=== PATIENT | male | born 1945 | race Caucasian/White ===

== ENCOUNTER 2016-12-10 10:47 | Emergency (ER) | payer OTHER ==
[2016-12-10 10:53] VITALS: TEMP 98.3; BMI 26.6
[2016-12-10 12:15] LABS: URINE APPEARANCE CLEAR; URINE BILIRUBIN NEGATIVE (NEGATIVE); URINE BLOOD NEGATIVE (NEGATIVE); URINE COLOR YELLOW; URINE GLUCOSE (UA) NEGATIVE (NEGATIVE); URINE KETONE NEGATIVE (NEGATIVE); URINE LEUK ESTERASE NEGATIVE (NEGATIVE); URINE NITRITE NEGATIVE (NEGATIVE); URINE PROTEIN NEGATIVE (NEGATIVE); URINE UROBILINOGEN NEGATIVE mg/dL (0.2-1.0)
--- NOTE | 2016-12-10 13:20 | PDOC ---
History of Present Illness - General Chief Complaint: Pain Stated Complaint: TESTICULAR PAIN Time Seen by Provider: 12/10/16 10:56 History Source: Patient Exam Limitations: No Limitations - History of Present Illness Travel History: No Initial Comments: 12/10/16 13:15 71-year-old male presents to the ED with worsening left testicular pain for the past few months. Patient states initially started as mild intermittent soreness now with constant severity radiating to his right scrotal region. Patient denies dysuria, hematuria, fever, chills skin discoloration, recent injury, or history of hydrocele/hernia. Patient was given a prescription for an ultrasound by his PCP Dr. Ramírez Choi but instead came to the ER for further evaluation. Patient has no other complaints at this time. Timing/Duration: reports: getting worse Quality: reports: moderate Abdominal Pain Onset Location: reports: other (left scrotum) Aggravating Factors: improves with: Movement Alleviating Factors: improves with: Rest Past History - Travel Traveled outside of the country in the last 30 days: No - Past Medical History Allergies/Adverse Reactions: Allergies Allergy/AdvReac Type Severity Reaction Status Date / Time No Known Drug Allergies Allergy Verified 12/10/16 10:52 Home Medications: Ambulatory Orders Lisinopril [Prinivil] 2.5 mg PO DAILY #60 tablet 07/12/13 Diltiazem HCl [Diltiazem 24Hr ER] 240 mg PO DAILY 08/01/13 Warfarin Na [Coumadin -] 2 mg PO DAILY 09/26/15 Anemia: No Asthma: No Cancer: No Cardiac Disorders: Yes (A.FIB) CVA: No COPD: No CHF: No Dementia: No Diabetes: No GI Disorders: No Disorders: No HTN: Yes Hypercholesterolemia: No Liver Disease: No Seizures: No Thyroid Disease: No - Surgical History Abdominal Surgery: No Appendectomy: No Cardiac Surgery: No Cholecystectomy: No Lung Surgery: No Neurologic Surgery: No Orthopedic Surgery: Yes (SHOULDER RIGHT FOR A TEAR) - Psycho/Social/Smoking Cessation Hx Anxiety: No Suicidal Ideation: No Smoking Status: No Smoking History: Never smoked Have you smoked in the past 12 months: No Number of Cigarettes Smoked Daily: 0 Information on smoking cessation initiated: No Hx Alcohol Use: No Drug/Substance Use Hx: No Substance Use Type: None Hx Substance Use Treatment: No Patient Lives Alone: No Lives with/in: spouse/SO Review of Systems - Review of Systems Able to Perform ROS?: Yes Constitutional: No: Symptoms Reported HEENTM: No: Symptoms Reported Respiratory: No: Symptoms reported Cardiac (ROS): No: Symptoms Reported ABD/GI: No: Symptoms Reported : Yes: Testicular Swelling, Testicular Pain. No: Burning, Dysuria, Discharge , Frequency, Flank Pain, Hematuria Musculoskeletal: No: Symptoms Reported Integumentary: No: Symptoms Reported Neurological: No: Symptoms reported Endocrine: No: Symptoms Reported Hematologic/Lymphatic: No: Symptoms Reported *Physical Exam - Vital Signs Last Vital Signs Temp Pulse Resp BP Pulse Ox 98.3 F 87 18 131/74 98 12/10/16 10:51 12/10/16 10:51 12/10/16 10:51 12/10/16 10:51 12/10/16 10:51 - Physical Exam General Appearance: Yes: Nourished, Appropriately Dressed. No: Apparent Distress HEENT: negative: Pale Conjunctivae Neck: positive: Supple Respiratory/Chest: positive: Lungs Clear, Normal Breath Sounds. negative: Respiratory Distress, Accessory Muscle Use Cardiovascular: positive: Regular Rhythm, Regular Rate. negative: Murmur Gastrointestinal/Abdominal: positive: Soft. negative: Tenderness Male Genitalia: positive: testicular tenderness, testicular mass, other (noted 4 x 2 cm tubular fluid-fluid mass proximal of left testicle. normal cremasteric reflex). negative: epididymus tender, inguinal hernia Lymphatic: negative: Adenopathy Musculoskeletal: negative: CVA Tenderness Extremity: positive: Normal Capillary Refill. negative: Pedal Edema Integumentary: positive: Normal Color, Warm, Moist. negative: Erythema, Swelling, Ecchymosis Neurologic: positive: Motor Strength 5/5 (ambulatory) ED Treatment Course - ADDITIONAL ORDERS Additional order review: Laboratory Results 12/10/16 12:05 Urine Color Yellow Urine Appearance Clear Urine pH 5.0 Urine Protein Negative Urine Glucose (UA) Negative Urine Ketones Negative Urine Blood Negative Urine Nitrite Negative Urine Bilirubin Negative Urine Urobilinogen Negative Ur Leukocyte Esterase Negative - RADIOLOGY Radiology Studies Ordered: Category Date Time Status SCROTUM AND CONTENTS US [US] Stat Ultrasound 12/10/16 11:42 Ordered Medical Decision Making - Medical Decision Making 12/10/16 13:20 Patient with continual and worsening left testicular pain. Patient states seen by his PCP yesterday who referred him to get an testicle ultrasound. Patient states secondary to pain, he decided come to the ER. Patient had no other complaints on exam. Patient with likely hydrocele versus hernia. Patient ordered for scrotal and contacts ultrasound along with a urinalysis and urine culture. 12/10/16 15:09 Laboratory Tests 12/10/16 12:05 Urine Glucose (UA) Negative Urine Ketones Negative Urine Nitrite Negative Ur Leukocyte Esterase Negative Both testicles appear unremarkable without evidence of epididymorchitis or torsion. Small bilateral varicocele . Small right and small to moderate size left hydrocele patient will be discharged home to follow-up with urology. *DC/Admit/Observation/Transfer Diagnosis at time of Disposition: Hydrocele in adult - Discharge Dispostion Disposition: HOME Condition at time of disposition: Good - Referrals Referrals: Kevin Choi MD [Primary Care Provider] - Estuardo Figueroa MD [Staff Physician] - - Patient Instructions Printed Discharge Instructions: DI for Hydrocele-Adult Additional Instructions: Please elevate scrotum and take Tylenol for discomfort. Please also follow up with referred urologist.
[2016-12-10 15:31] VITALS: BP 132/68; PULSE 81
== END 2016-12-10 15:31 | disposition home or self-care (01) ==
LOC: JER 10:47
DX: N43.3 Hydrocele, unspecified (principal); I48.91 Unspecified atrial fibrillation; I10 Essential (primary) hypertension
CPT/HCPCS: 76870-TC; 81003; 87086; 99282-25

== ENCOUNTER 2018-09-02 15:37 | Emergency (ER) | payer OTHER ==
[2018-09-02 15:48] VITALS: BP 119/95; PULSE 93; TEMP 98.1; BMI 30.5
--- NOTE | 2018-09-02 15:48 | PDOC ---
Rapid Medical Evaluation Time Seen by Provider: 09/02/18 15:45 Medical Evaluation: Allergies Allergy/AdvReac Type Severity Reaction Status Date / Time No Known Drug Allergies Allergy Verified 12/10/16 10:52 09/02/18 15:45 I have performed a brief in-person evaluation of this patient. The patient presents with a chief complaint of: LLQ pain radiating to groin x 5 days, no dysuria or hematuria, hx afib on coumadin. PCP Kevin Choi. denies hx of abdominal sx Pertinent physical exam findings: well appearing, mild tenderness to LLQ I have ordered the following: urine, labs, ct The patient will proceed to the ED for further evaluation.
[2018-09-02] MEDS ORDERED: ACETAMINOPHEN 1000 MG/100 ML VIAL (NON FORMULARY) IVPB ONE (17:13)
[2018-09-02] MEDS ORDERED: SODIUM CHLORIDE 0.9% 500 ML INFUS.BAG IV ONE (17:13)
[2018-09-02 17:40] LABS: BASO % 0.5 % (0-2.0); EOS % 2.4 % (0-4.5); HEMATOCRIT 42.8 % (35.4-49); HEMOGLOBIN 14.4 GM/dL (11.7-16.9); LYMPH % 36.2 % (8-40); MCH 32.8 pg (25.7-33.7); MCHC 33.6 g/dl (32.0-35.9); MEAN CELL VOLUME 97.6 fl (80-96); MEAN PLT VOLUME 8.3 fl (7.5-11.1); MONO % 6.5 % (3.8-10.2); NEUT % 54.4 % (42.8-82.8); PLATELET COUNT 215 K/MM3 (134-434); RBC 4.38 M/mm3 (4.00-5.60); RDW 13.5 % (11.9-15.9); WHITE BLOOD COUNT 8.1 K/mm3 (4.0-10.0)
[2018-09-02 17:48] LABS: INR 2.84 (0.83-1.09); PROTHROMBIN TIME (PATIENT) 33.9 SEC (9.7-13.0)
--- NOTE | 2018-09-02 17:48 | PDOC ---
Documentation entered by Vivi Rockwell SCRIBE, acting as scribe for Maryanne Callejas MD. Maryanne Callejas MD: This documentation has been prepared by the siennaibe, Vivi Rockwell SCRIBE, under my direction and personally reviewed by me in its entirety. I confirm that the documentation accurately reflects all work, treatment, procedures, and medical decision making performed by me. History of Present Illness - General Chief Complaint: Pain Stated Complaint: TESTICULAR PAIN Time Seen by Provider: 09/02/18 15:45 History Source: Patient Exam Limitations: No Limitations - History of Present Illness Initial Comments: 09/02/18 17:26 The patient is a year old male with a significant past medical history of afib ( on coumadin), kidney stones and hypertension who presents to the emergency department with left sided abdominal pain for 4 days. The patient states that his abdominal pain is pressure like and worsened with eating. He reports some associated left groin pain without testicular swelling as well as urinary frequency; no hematuria, dysuria or urgency.. The patient reports that he has experienced a similar episode in the past by which he was noted to have kidney stones and also with hydrocele by ultrasound. The patient denies any nausea, vomiting, diarrhea, constipation, bloody stools, chest pain, shortness of breath. No Headache, dizziness, back pain, or recent travel. no suspicious food intake. He denies any history of smoking, drugs or alcohol. PSH: arthroscopies; no abdominal surgeries Meds as documented in EMR No tobacco or ETOH or drug use. PCP: Dr. Choi 09/02/18 17:44 Past History - Past Medical History Allergies/Adverse Reactions: Allergies Allergy/AdvReac Type Severity Reaction Status Date / Time No Known Drug Allergies Allergy Verified 09/02/18 15:48 Home Medications: Ambulatory Orders Lisinopril [Prinivil] 2.5 mg PO DAILY #60 tablet 07/12/13 Diltiazem HCl [Diltiazem 24Hr ER] 240 mg PO DAILY 08/01/13 Warfarin Na [Coumadin -] 2 mg PO DAILY 09/26/15 Anemia: No Asthma: No Cancer: No Cardiac Disorders: Yes (A.FIB) CVA: No COPD: No CHF: No Dementia: No Diabetes: No GI Disorders: No Disorders: No HTN: Yes Hypercholesterolemia: No Liver Disease: No Seizures: No Thyroid Disease: No - Surgical History Abdominal Surgery: No Appendectomy: No Cardiac Surgery: No Cholecystectomy: No Lung Surgery: No Neurologic Surgery: No Orthopedic Surgery: Yes (SHOULDER RIGHT FOR A TEAR) - Suicide/Smoking/Psychosocial Hx Smoking Status: No Smoking History: Never smoked Have you smoked in the past 12 months: No Number of Cigarettes Smoked Daily: 0 Information on smoking cessation initiated: No Hx Alcohol Use: No Drug/Substance Use Hx: No Substance Use Type: None Hx Substance Use Treatment: No Review of Systems - Review of Systems Able to Perform ROS?: Yes Comments:: 09/02/18 17:27 Constitutional: no fevers or chills. HEENT: no headache or dizziness. No congestion. No visual/hearing disturbances. CVS: no cp or syncope. Resp: no sob. No cough. Gastrointestinal: (+)left sided abdominal pain. no nausea or vomiting. no diarrhea or constipation. no bloody stools Genitourinary: (+)groin pain, urinary frequency. no hematuria. no dysuria. MUSCULOSKELETAL: No joint pain and swelling. No neck or back pain. SKIN: no redness or skin changes, no discharge, no rash. No wounds. Hematologic: no easy bruising/bleeding. NEUROLOGIC: No headache, dizziness, LOC or altered mental status. No weakness, numbness or tingling. Psych: no anxiety or depression Allergic/Immunologic: no allergies All other systems reviewed and negative, or as documented in HPI. 09/02/18 17:46 *Physical Exam - Vital Signs Last Vital Signs Temp Pulse Resp BP Pulse Ox 98.1 F 93 H 18 119/95 98 09/02/18 15:46 09/02/18 15:46 09/02/18 15:46 09/02/18 15:46 09/02/18 15:46 - Physical Exam Comments: 09/02/18 17:33 Physical exam: General: Well appearing, awake and alert, NAD. HEENT: NCAT, PERRL, EOMI, clear conjunctiva, anicteric, moist mucus membranes, clear oropharynx, no oral lesions.. Neck: neck supple, FROM Resp: CTAB, normal and even respirations, no respiratory distress CVS: irregularly irregular, no murmurs, 2+ peripheral pulses throughout, no peripheral edema Abdomen: (+)LLQ AND LUQ tenderness. soft, ND, no peritoneal signs. no CVAT. Male : normal external genitalia, no lesions, normal testicular lie, no scrotal or testicular edema or tenderness. Back: nontender, normal inspection and ROM MSK: no edema, DEE x4, ROM intact. No clubbing or cyanosis. normal bulk and tone. Neuro: alert, no focal neuro deficits. Skin: warm and well perfused, cap refill <2 sec, normal color 09/02/18 17:46 09/02/18 19:00 ED Treatment Course - LABORATORY CBC & Chemistry Diagram: 09/02/18 17:17 09/02/18 17:17 - ADDITIONAL ORDERS Additional order review: 09/02/18 17:17 RBC 4.38 MCV 97.6 H MCHC 33.6 RDW 13.5 MPV 8.3 Neutrophils % 54.4 Lymphocytes % 36.2 Monocytes % 6.5 Eosinophils % 2.4 Basophils % 0.5 - RADIOLOGY Radiology Studies Ordered: Category Date Time Status ABDOMEN & PELVIS CT WITH CONTR [CT] Stat CT Scan 09/02/18 16:49 Ordered Medical Decision Making - Medical Decision Making 09/02/18 17:47 See HPI for details. Prior notes reviewed, including admissions, discharges and consultations. Vital signs reviewed, wnl. DDx abdominal pain: Renal colic, biliary colic, metabolic/electrolyte derangements. GERD, PUD, esophageal spasm, pancreatitis, hepatitis, constipation , colitis, gastroenteritis, cholecystitis, UTI, pyelonephritis, ileus, SBO, medication side effect, hernia, appendicitis, diverticulitis, mesenteric ischemia. msk strain, mesenteric adenitis, psoas abscess. laboratory results and imaging reviewed, basic labs and lytes wnl, notable for normal LFTs. coags therapeutic for his Afib. UA_neg for infection ED course - CT a/p to eval for diverticular disease vs abdominal pathology vs ureteral stone. neg for acute abdominal pathology - given tylenol for analgesia, IVF - well appearing, nontoxic. no testicular tenderness or abnormalities noted Pt to be discharged in stable condition. Patient and family made aware of impression and plan, return precautions discussed (including but not limited to worsening pain or symptoms), fevers, or signs of infection, chest pain, respiratory distress, inability to tolerate oral intake, dehydration, syncope, or neurologic changes). Follow up with PMD as recommended, follow up information provided, take medications as instructed for duration of time. continue with supportive care, avoid triggers and precipitants. All questions answered to patient's satisfaction and expressed understanding and comfort with this. Patient does not suffer from an acute life-threatening medical condition at this time and is safe for outpatient follow-up. 09/02/18 18:57 09/02/18 19:00 09/03/18 09:16 *DC/Admit/Observation/Transfer Diagnosis at time of Disposition: Abdominal pain - Discharge Dispostion Disposition: HOME Condition at time of disposition: Improved Decision to Admit order: No - Referrals Referrals: Kevin Choi MD [Primary Care Provider] - - Patient Instructions Printed Discharge Instructions: DI for Abdominal Pain-Adult Additional Instructions: 1) Please follow-up with your primary care doctor in the next 1-2 days. Please call tomorrow for for any urgent issues. 2) You were given a copy of the tests performed today. Please bring the results with you and review them with your primary care doctor. Your laboratory / imaging results were normal, Evaluated for your abdominal pain, your CT scan was within normal limits and no acute pathology was noted. 3) If you have any worsening of symptoms or any other concerns please return to the ED immediately. Return if worsening symptoms including fevers, headache, vomiting, visual or hearing disturbances, abdominal pain, chest pain, shortness of breath, syncope, dehydration, inability to take things by mouth/vomiting, altered mental status, or worsening concerning symptoms. 4) Please continue taking your home medications as directed. Stay well hydrated and rest adequately. Make an appointment. If you cannot follow-up with your primary care doctor please return to the ED if worsening symptoms as above. - Post Discharge Activity
[2018-09-02 18:01] LABS: ALBUMIN 3.9 g/dl (3.4-5.0); BILIRUBIN,TOTAL 0.7 mg/dL (0.2-1); CALCIUM 8.6 mg/dL (8.5-10.1); CREATININE 0.9 mg/dL (0.55-1.3); POTASSIUM 4.2 mmol/L (3.5-5.1); TOT PROT 7.5 g/dl (6.4-8.2)
[2018-09-02] MEDS ORDERED: ACETAMINOPHEN INJECTION 100 ML IVPB ONE (18:13)
[2018-09-02 21:10] LABS: PH,URINE 5.5 (5.0-8.0); URINE APPEARANCE CLEAR; URINE BILIRUBIN NEGATIVE (NEGATIVE); URINE COLOR YELLOW; URINE GLUCOSE (UA) NEGATIVE (NEGATIVE); URINE KETONE NEGATIVE (NEGATIVE); URINE LEUK ESTERASE NEGATIVE (NEGATIVE); URINE NITRITE NEGATIVE (NEGATIVE); URINE PROTEIN NEGATIVE (NEGATIVE); URINE UROBILINOGEN 0.2 mg/dL (0.2-1.0)
--- NOTE | 2018-09-02 21:14 | PDOC ---
*Physical Exam - Vital Signs Last Vital Signs Temp Pulse Resp BP Pulse Ox 98.1 F 93 H 18 119/95 98 09/02/18 15:46 09/02/18 15:46 09/02/18 15:46 09/02/18 15:46 09/02/18 15:46 ED Treatment Course - LABORATORY CBC & Chemistry Diagram: 09/02/18 17:17 09/02/18 17:17 - ADDITIONAL ORDERS Additional order review: Laboratory Results 09/02/18 09/02/18 09/02/18 19:19 17:17 17:17 PT with INR 33.90 H INR 2.84 H Sodium 139 Potassium 4.2 Chloride 107 Carbon Dioxide 25 Anion Gap 7 L BUN 12 Creatinine 0.9 Est GFR (CKD-EPI)AfAm 98.55 Est GFR (CKD-EPI)NonAf 85.03 Random Glucose 84 Calcium 8.6 Total Bilirubin 0.7 AST 21 ALT 22 Alkaline Phosphatase 81 Total Protein 7.5 Albumin 3.9 Urine Color Yellow Urine Appearance Clear Urine pH 5.5 Ur Specific [place] 1.038 H Urine Protein Negative Urine Glucose (UA) Negative Urine Ketones Negative Urine Blood Negative Urine Nitrite Negative Urine Bilirubin Negative Urine Urobilinogen 0.2 Ur Leukocyte Esterase Negative 09/02/18 17:17 RBC 4.38 MCV 97.6 H MCHC 33.6 RDW 13.5 MPV 8.3 Neutrophils % 54.4 Lymphocytes % 36.2 Monocytes % 6.5 Eosinophils % 2.4 Basophils % 0.5 - Medications Given in the ED: ED Medications Discontinued Medications Generic Name Dose Route Start Last Admin Trade Name Freq PRN Reason Stop Dose Admin Acetaminophen 1,000 mg 09/02/18 17:13 09/02/18 18:26 Ofirmev Injection - IVPB 09/02/18 17:14 1,000 mg ONCE ONE Administration Sodium Chloride 1,000 ml 09/02/18 17:13 09/02/18 18:26 Normal Saline - IV 09/02/18 17:14 1,000 ml ONCE ONE Administration Medical Decision Making - Medical Decision Making 09/03/18 02:32 Pt picked up on signout. He is awaiting UA. UA normal; exam normal; CT scan normal. Pt stable for d/c home with his family. *DC/Admit/Observation/Transfer Diagnosis at time of Disposition: Abdominal pain - Discharge Dispostion Disposition: HOME Condition at time of disposition: Improved Decision to Admit order: No - Referrals Referrals: Kevin Choi MD [Primary Care Provider] - - Patient Instructions Printed Discharge Instructions: DI for Abdominal Pain-Adult Additional Instructions: 1) Please follow-up with your primary care doctor in the next 1-2 days. Please call tomorrow for for any urgent issues. 2) You were given a copy of the tests performed today. Please bring the results with you and review them with your primary care doctor. Your laboratory / imaging results were normal, Evaluated for your abdominal pain, your CT scan was within normal limits and no acute pathology was noted. 3) If you have any worsening of symptoms or any other concerns please return to the ED immediately. Return if worsening symptoms including fevers, headache, vomiting, visual or hearing disturbances, abdominal pain, chest pain, shortness of breath, syncope, dehydration, inability to take things by mouth/vomiting, altered mental status, or worsening concerning symptoms. 4) Please continue taking your home medications as directed. Stay well hydrated and rest adequately. Make an appointment. If you cannot follow-up with your primary care doctor please return to the ED if worsening symptoms as above. - Post Discharge Activity
== END 2018-09-02 22:02 | disposition home or self-care (01) ==
LOC: JER 15:37
PROC: 3E033NZ Introduction of Analgesics, Hypnotics, Sedatives into Peripheral Vein, Percutaneous Approach (ICD-10-PCS; principal; 2018-09-02)
DX: R10.32 Left lower quadrant pain (principal); I10 Essential (primary) hypertension; Z87.442 Personal history of urinary calculi; I48.91 Unspecified atrial fibrillation; Z79.01 Long term (current) use of anticoagulants
CPT/HCPCS: 36415; 74177-TC; 80053; 81003; 85025; 85610; 87086; 99281-25; J0131

== ENCOUNTER 2021-06-16 17:55 | Observation (INO) | payer OTHER ==
[2021-06-16 21:03] LABS: BASO % 0.6 % (0-2.0); EOS % 0.3 % (0-4.5); HEMATOCRIT 45.1 % (35.4-49); LYMPH % 19.5 % (8-40); MCHC 33.2 g/dl (32.0-35.9); MEAN CELL VOLUME 96.5 fl (80-96); MONO % 6.8 % (3.8-10.2); NEUT % 72.8 % (42.8-82.8); PLATELET COUNT 237 10^3/uL (134-434); RBC 4.67 M/mm3 (4.00-5.60); RDW 13.8 % (11.9-15.9); WHITE BLOOD COUNT 10.9 K/mm3 (4.0-10.0)
[2021-06-16 21:27] LABS: ALBUMIN 3.8 g/dl (3.4-5.0); BLOOD UREA NITROGEN 19.1 mg/dL (7-18); CALCIUM 9.5 mg/dL (8.5-10.1)
[2021-06-16 21:31] LABS: INR 2.91 (0.83-1.09); PROTHROMBIN TIME (PATIENT) 33.8 SEC (9.7-13.0)
[2021-06-16 21:32] LABS: BILIRUBIN,TOTAL 1.5 mg/dL (0.2-1); TOT PROT 7.1 g/dl (6.4-8.2)
[2021-06-16 21:35] LABS: N-TERMINAL BNP 940.3 pg/ml (5-125)
[2021-06-16] MEDS ORDERED: ACETAMINOPHEN 325 MG TABLET (FP) PO ONE (22:25)
[2021-06-16] MEDS ORDERED: ACETAMINOPHEN 325 MG TABLET (FP) ONE (22:27)
[2021-06-17 08:15] LABS: BASO % 0.6 % (0-2.0); EOS % 1.4 % (0-4.5); HEMOGLOBIN 14.4 GM/dL (11.7-16.9); MCH 32.3 pg (25.7-33.7); MCHC 33.4 g/dl (32.0-35.9); MEAN CELL VOLUME 96.6 fl (80-96); MEAN PLT VOLUME 8.8 fl (7.5-11.1); MONO % 7.8 % (3.8-10.2); NEUT % 59.2 % (42.8-82.8); PLATELET COUNT 193 10^3/uL (134-434); RBC 4.45 M/mm3 (4.00-5.60); RDW 13.3 % (11.9-15.9); WHITE BLOOD COUNT 6.7 K/mm3 (4.0-10.0)
[2021-06-17 08:48] LABS: BLOOD UREA NITROGEN 15.8 mg/dL (7-18)
[2021-06-17 08:50] LABS: CALCIUM 9.3 mg/dL (8.5-10.1)
[2021-06-17 08:54] LABS: CREATININE 0.8 mg/dL (0.55-1.3)
[2021-06-17] MEDS ORDERED: LISINOPRIL 5 MG TABLET ONE (09:40)
[2021-06-17] MEDS ORDERED: LISINOPRIL 5 MG TABLET PO SCH (10:00)
[2021-06-17] MEDS ORDERED: hydrALAZINE HCL 20 MG/ML VIAL IVPUSH ONE (12:01)
[2021-06-17] MEDS ORDERED: hydrALAZINE HCL 20 MG/ML VIAL ONE (12:19)
[2021-06-17 13:57] VITALS: BMI 31.4
[2021-06-17] MEDS: WARFARIN NA 3 MG TABLET PO SCH (17:25)
[2021-06-17] MEDS: ATORVASTATIN CA 10 MG TABLET (FP) PO SCH (21:14)
[2021-06-18 07:40] LABS: INR 2.54 (0.83-1.09); PROTHROMBIN TIME (PATIENT) 29.5 SEC (9.7-13.0)
[2021-06-18] MEDS: LISINOPRIL 5 MG TABLET PO SCH (08:59)
[2021-06-18] MEDS ORDERED: REGADENOSON 0.4 MG/5 ML PRE-FILLED SYRINGE IVPUSH ONE ×2 (09:22→10:15)
[2021-06-18] MEDS: WARFARIN NA 3 MG TABLET PO SCH (17:16)
[2021-06-18] MEDS: ATORVASTATIN CA 10 MG TABLET (FP) PO SCH (21:49)
[2021-06-19] MEDS: LISINOPRIL 5 MG TABLET PO SCH (09:32)
[2021-06-19 12:00] VITALS: BP 127/95; PULSE 88; TEMP 98.3
== END 2021-06-19 13:56 | disposition home or self-care (01) ==
LOC: JER 17:55 → JERBED 19:58 → J4W 06-17 14:35
PROVIDERS: ADMIT Hospitalist; ATTEND Internal Medicine
PROC: 3E033GC Introduction of Other Therapeutic Substance into Peripheral Vein, Percutaneous Approach (ICD-10-PCS; principal; 2021-06-16)
DX: I48.91 Unspecified atrial fibrillation (principal); I10 Essential (primary) hypertension; R55 Syncope and collapse; R07.9 Chest pain, unspecified; E78.5 Hyperlipidemia, unspecified; Z79.01 Long term (current) use of anticoagulants; J18.9 Pneumonia, unspecified organism; N20.0 Calculus of kidney; Z86.79 Personal history of other diseases of the circulatory system; Z86.39 Personal history of other endocrine, nutritional and metabolic disease
CPT/HCPCS: 36415; 71045-TC-FY; 78452-TC; 80048; 80053; 83735; 83880; 84443; 84484; 85025; 85610; 85730; 93005; 93010; 93017; 93306-TC; 93880-TC; 96374; 99285-25; A9502; C9803; G0378; J2785; U0003; U0005

== ENCOUNTER 2022-10-26 06:10 | Day surgery (SDC) | payer MEDICARE ==
[2022-10-16 13:57] VITALS: BMI 30.5
[2022-10-26] MEDS ORDERED: CEFAZOLIN 2 GM in DEXTROSE 5%-WATER - 100 ML IVPB ONE (07:00)
[2022-10-26] MEDS ORDERED: EPINEPHrine/PF 1 MG/1 ML (1:1,000) AMPULE ONE (07:10)
[2022-10-26] MEDS ORDERED: VANCOMYCIN 1,000 MG VIAL (RESTRICTED TO ID ONLY) ONE ×2 (07:10→08:15)
[2022-10-26] MEDS ORDERED: LIDOCAINE HCL/PF 2% SDV 5ML VIAL ONE (07:15)
[2022-10-26] MEDS ORDERED: DEXAMETHASONE SOD PHOSPHATE 4 MG/1 ML VIAL ONE (07:15)
[2022-10-26] MEDS ORDERED: PROPOFOL 20 ML ONE (07:15)
[2022-10-26] MEDS ORDERED: KETOROLAC TROMETHAMINE 30 MG/1 ML VIAL ONE (07:15)
[2022-10-26] MEDS ORDERED: ceFAZolin SODIUM 1 GM VIAL ONE (07:15)
[2022-10-26] MEDS ORDERED: MIDAZOLAM HCL 2 MG/2 ML SINGLE DOSE VIAL ONE (07:15)
[2022-10-26] MEDS ORDERED: ONDANSETRON 4 MG/2 ML VIAL ONE (07:15)
[2022-10-26] MEDS ORDERED: BUPIVACAINE LIPOSOME/PF (EXPAREL) 266 MG/20 ML VIAL ONE (07:28)
[2022-10-26] MEDS ORDERED: BUPIVACAINE HCL/PF 0.5% (5MG/ML) 10 ML VIAL ONE (07:29)
[2022-10-26] MEDS ORDERED: TRANEXAMIC ACID 1000 MG/10 ML VIAL IVPUSH ONE (08:00)
[2022-10-26] MEDS ORDERED: ROCURONIUM BROMIDE 50 MG/5 ML SYRINGE ONE (08:13)
[2022-10-26] MEDS ORDERED: SUGAMMADEX SODIUM 200 MG/2 ML VIAL ONE (09:40)
[2022-10-26] MEDS ORDERED: oxyCODONE HCL 5 MG TABLET PO PRN ×2 (10:46)
[2022-10-26] MEDS ORDERED: ONDANSETRON 4 MG/2 ML VIAL IVPUSH PRN ×2 (10:46→15:44)
[2022-10-26] MEDS: ACETAMINOPHEN 1000 MG/100 ML BAG IVPB ONE ×2 (10:55→12:49)
[2022-10-26] MEDS: LACTATED RINGERS SOLUTION 1,000 ML IV SCH ×2 (11:55→12:50)
[2022-10-26] MEDS ORDERED: LACTATED RINGERS SOLUTION 1,000 ML IV SCH (15:45)
[2022-10-26] MEDS: CEFAZOLIN SODIUM 2 GM in DEXTROSE 5%-WATER 100 ML IVPB SCH (16:31)
[2022-10-26] MEDS: ACETAMINOPHEN 500 MG TABLET (FP) PO SCH ×2 (17:27→22:51)
[2022-10-26] MEDS ORDERED: VANCOMYCIN/WATER FOR INJ (PEG) 1,000 MG/200 ML BAG IVPB ONE (20:00)
[2022-10-26] MEDS ORDERED: oxyCODONE HCL 10 MG SUSTAINED ACTING TABLET PO SCH (22:00)
[2022-10-27] MEDS: CEFAZOLIN SODIUM 2 GM in DEXTROSE 5%-WATER 100 ML IVPB SCH ×2 (00:50→09:21)
[2022-10-27 04:43] VITALS: RESP 18
[2022-10-27] MEDS: ACETAMINOPHEN 500 MG TABLET (FP) PO SCH ×2 (06:25→09:23)
[2022-10-27 09:13] VITALS: BP 121/67; PULSE 83; TEMP 98.3
[2022-10-27] MEDS ORDERED: ASPIRIN 325 MG TABLET PO SCH (10:00)
[2022-10-27] MEDS ORDERED: MULTIVITAMINS (DAILY MVI) TABLET (FP) PO SCH (10:00)
[2022-10-27] MEDS ORDERED: PANTOPRAZOLE 40 MG TABLET PO SCH (10:00)
== END 2022-10-27 13:48 | disposition home or self-care (01) ==
LOC: SUATTDRO 06:10 → FASUSAT 06:10 → FM/S 12:04 → FASUSAT 10-27 13:48
PROC: 0LS40ZZ Reposition Left Upper Arm Tendon, Open Approach (ICD-10-PCS; 2022-10-26)
PROC: 0RRK0JZ Replacement of Left Shoulder Joint with Synthetic Substitute, Open Approach (ICD-10-PCS; principal; 2022-10-26 08:40)
DX: M19.012 Primary osteoarthritis, left shoulder (principal); M75.102 Unspecified rotator cuff tear or rupture of left shoulder, not specified as traumatic; M75.22 Bicipital tendinitis, left shoulder
CPT/HCPCS: 23430; 23472; C1776; 73030-TC-LT-FY; 88305-TC; 88311-TC; 94760; 97116-GP; 97162-GP; C1713

== ENCOUNTER 2023-07-15 17:52 | Emergency (ER) | payer MEDICARE ==
[2023-07-15 17:59] VITALS: BP 124/77; PULSE 65; RESP 18; TEMP 98.1; BMI 29.5
[2023-07-15] MEDS ORDERED: ACETAMINOPHEN 500 MG TABLET (FP) ONE (18:48)
[2023-07-15] MEDS ORDERED: METHOCARBAMOL 500 MG TABLET ONE (18:48)
[2023-07-15] MEDS ORDERED: LIDOCAINE 4% PATCH TP ONE (18:48)
[2023-07-15] MEDS: LIDOCAINE 4% PATCH TP ONE (18:50)
[2023-07-15] MEDS: METHOCARBAMOL 500 MG TABLET PO ONE (18:50)
[2023-07-15] MEDS: ACETAMINOPHEN 500 MG TABLET (FP) PO ONE (18:50)
[2023-07-15] MEDS ORDERED: LIDOCAINE PATCH REMOVAL MC SCH (22:00)
== END 2023-07-15 19:38 | disposition home or self-care (01) ==
LOC: JERFT 17:52
DX: M25.552 Pain in left hip (principal); M79.18 Myalgia, other site
CPT/HCPCS: 99283-25

== ENCOUNTER 2023-11-03 10:50 | Emergency (ER) | payer MEDICARE ==
[2023-11-03 10:58] VITALS: BP 128/63; PULSE 51; RESP 16; TEMP 97.8; BMI 28.3
[2023-11-03 12:41] LABS: BASO % 0.8 % (0-2.0); HEMATOCRIT 40.5 % (35.4-49); HEMOGLOBIN 13.9 GM/dL (11.7-16.9); LYMPH % 30.6 % (8-40); MCH 32.4 pg (25.7-33.7); MCHC 34.2 g/dl (32.0-35.9); MEAN CELL VOLUME 94.7 fl (80-96); MEAN PLT VOLUME 7.7 fl (7.5-11.1); MONO % 5.1 % (3.8-10.2); NEUT % 62.5 % (42.8-82.8); PLATELET COUNT 170 10^3/uL (134-434); RBC 4.28 M/mm3 (4.00-5.60); RDW 14.7 % (11.9-15.9); WHITE BLOOD COUNT 5.9 K/mm3 (4.0-10.0)
[2023-11-03 12:50] LABS: ACTIVATED PTT 38.3 SECONDS (25.2-36.5); INR 2.41 (0.83-1.09)
[2023-11-03 13:08] LABS: POTASSIUM 4.7 mmol/L (3.5-5.1)
[2023-11-03 13:11] LABS: CALCIUM 9.1 mg/dL (8.5-10.1)
[2023-11-03 13:12] LABS: ALBUMIN 3.5 g/dl (3.4-5.0); BLOOD UREA NITROGEN 16.1 mg/dL (7-18)
[2023-11-03 13:16] LABS: BILIRUBIN,TOTAL 1.4 mg/dL (0.2-1)
[2023-11-03 13:18] LABS: CREATININE 0.7 mg/dL (0.55-1.3); TOT PROT 6.8 g/dl (6.4-8.2)
[2023-11-03 13:20] LABS: N-TERMINAL BNP 1286.5 pg/ml (5-450)
[2023-11-03 13:32] LABS: PH,URINE 5.5 (5.0-8.0); URINE APPEARANCE CLEAR; URINE BILIRUBIN NEGATIVE (NEGATIVE); URINE COLOR YELLOW; URINE GLUCOSE (UA) NEGATIVE (NEGATIVE); URINE KETONE NEGATIVE (NEGATIVE); URINE LEUK ESTERASE NEGATIVE (NEGATIVE); URINE NITRITE NEGATIVE (NEGATIVE); URINE PROTEIN NEGATIVE (NEGATIVE); URINE UROBILINOGEN 0.2 mg/dL (0.2-1.0)
== END 2023-11-03 15:30 | disposition home or self-care (01) ==
LOC: JER 10:50
DX: M79.89 Other specified soft tissue disorders (principal)
CPT/HCPCS: 36415; 71045-TC-FY; 80053; 81003; 83880; 84484; 85025; 85610; 85730; 86850; 86900; 86901; 87086; 93005; 93010; 99285-25

== ENCOUNTER 2023-12-21 05:57 | Day surgery (SDC) | payer MEDICARE ==
[2023-12-15 11:51] VITALS: BMI 28.1
[2023-12-21] MEDS ORDERED: PROPOFOL 20 ML ONE (07:17)
[2023-12-21] MEDS ORDERED: SUCCINYLCHOLINE CHLORIDE 200 MG/10 ML SYRINGE ONE (07:18)
[2023-12-21] MEDS ORDERED: EPINEPHrine 1:1,000 1,000 MCG/ML ML ONE (07:21)
[2023-12-21] MEDS ORDERED: BUPIVACAINE HCL/PF 0.25% (2.5MG/ML) 10 ML VIAL ONE (07:21)
[2023-12-21] MEDS ORDERED: DEXAMETHASONE SOD PHOSPHATE 4 MG/1 ML VIAL ONE (07:50)
[2023-12-21] MEDS ORDERED: ONDANSETRON 4 MG/2 ML VIAL ONE (08:12)
[2023-12-21] MEDS ORDERED: oxyCODONE HCL 5 MG TABLET PO PRN (08:43)
[2023-12-21] MEDS ORDERED: ONDANSETRON 4 MG/2 ML VIAL IVPUSH PRN (08:43)
[2023-12-21] MEDS ORDERED: LACTATED RINGERS SOLUTION 1,000 ML IV SCH (08:45)
[2023-12-21 08:55] VITALS: TEMP 97.5
[2023-12-21 13:07] VITALS: BP 110/67; PULSE 62
[2023-12-21 13:11] VITALS: RESP 18
== END 2023-12-21 10:34 | disposition home or self-care (01) ==
LOC: FASU 05:57
PROVIDERS: ATTEND Orthopaedic Surgery Sports Medicine
PROC: 0SQD4ZZ Repair Left Knee Joint, Percutaneous Endoscopic Approach (ICD-10-PCS; principal; 2023-12-21 08:06)
DX: S83.242A Other tear of medial meniscus, current injury, left knee, initial encounter (principal); M65.862 Other synovitis and tenosynovitis, left lower leg; M94.262 Chondromalacia, left knee; X58.XXXA Exposure to other specified factors, initial encounter; Y92.9 Unspecified place or not applicable; Y93.9 Activity, unspecified
CPT/HCPCS: 94760

== ENCOUNTER 2023-12-25 13:24 | Observation (INO) | payer MEDICARE ==
[2023-12-25 14:30] LABS: VENOUS BASE EXCESS 0.3 mmol/L (-2-2); VENOUS O2 SATURATION 94.6 % (70-80); VENOUS PCO2 32.2 mmHg (38-52); VENOUS PH 7.473 (7.310-7.410)
[2023-12-25 14:40] LABS: INR 1.86 (0.83-1.09)
[2023-12-25 14:41] LABS: POTASSIUM 3.4 mmol/L (3.5-5.1)
[2023-12-25 14:43] LABS: ACTIVATED PTT 31.3 SECONDS (25.2-36.5); ALBUMIN 3.4 g/dl (3.4-5.0); BLOOD UREA NITROGEN 21.8 mg/dL (7-18); CALCIUM 9.1 mg/dL (8.5-10.1)
[2023-12-25 14:45] LABS: BASO % 0.6 % (0-2.0); EOS % 0.5 % (0-4.5); HEMOGLOBIN 13.6 GM/dL (11.7-16.9); LYMPH % 24.4 % (8-40); MCH 31.7 pg (25.7-33.7); MCHC 33.1 g/dl (32.0-35.9); MEAN CELL VOLUME 95.5 fl (80-96); MEAN PLT VOLUME 7.9 fl (7.5-11.1); NEUT % 69.5 % (42.8-82.8); PLATELET COUNT 170 10^3/uL (134-434); RBC 4.29 M/mm3 (4.00-5.60); RDW 13.4 % (11.9-15.9); WHITE BLOOD COUNT 8.7 K/mm3 (4.0-10.0)
[2023-12-25 14:48] LABS: BILIRUBIN,TOTAL 2.7 mg/dL (0.2-1)
[2023-12-25 15:38] LABS: HIV INTERPRETATION NEGATIVE (NEGATIVE)
[2023-12-25] MEDS ORDERED: CEFTRIAXONE 1 GM/50 ML BAG ONE (17:26)
[2023-12-25] MEDS ORDERED: AZITHROMYCIN IVPB 500 MG/250 ML BAG IVPB ONE (17:27)
[2023-12-25] MEDS: CEFTRIAXONE 1 GM in DEXTROSE 5%-WATER - 100 ML IVPB ONE (17:28)
[2023-12-25] MEDS: AZITHROMYCIN IVPB 500 MG in DEXTROSE 5%-WATER - 250 ML IVPB ONE (17:36)
[2023-12-25 18:29] LABS: BILIRUBIN,DIRECT 0.6 mg/dL (0.0-0.2)
[2023-12-25 21:01] VITALS: BMI 27.4
[2023-12-25] MEDS ORDERED: DOCUSATE SODIUM 100 MG CAPSULE (FP) PO PRN (21:05)
[2023-12-25] MEDS: ACETAMINOPHEN 325 MG TABLET (FP) PO PRN (22:21)
[2023-12-25] MEDS: POLYETHYLENE GLYCOL (HEALTHYLAX) 3350 17 GM PACKET PO SCH (22:22)
[2023-12-25 23:03] LABS: MAGNESIUM 1.9 mg/dL (1.8-2.4)
[2023-12-25 23:07] LABS: PHOSPHOROUS 3.5 mg/dL (2.5-4.9)
[2023-12-26] MEDS: APIXABAN 5 MG TABLET PO SCH (00:26)
[2023-12-26] MEDS: SODIUM CHLORIDE 0.9% 500 ML INFUS.BAG IV ONE (00:26)
[2023-12-26 08:23] LABS: BASO % 0.2 % (0-2.0); HEMATOCRIT 39.2 % (35.4-49); HEMOGLOBIN 13.5 GM/dL (11.7-16.9); LYMPH % 29.8 % (8-40); MCH 32.3 pg (25.7-33.7); MCHC 34.4 g/dl (32.0-35.9); MEAN CELL VOLUME 93.9 fl (80-96); MEAN PLT VOLUME 7.8 fl (7.5-11.1); MONO % 6.4 % (3.8-10.2); NEUT % 61.6 % (42.8-82.8); PLATELET COUNT 159 10^3/uL (134-434); RBC 4.18 M/mm3 (4.00-5.60); RDW 13.6 % (11.9-15.9); WHITE BLOOD COUNT 5.5 K/mm3 (4.0-10.0)
[2023-12-26 08:31] LABS: POTASSIUM 3.8 mmol/L (3.5-5.1)
[2023-12-26 08:45] LABS: BLOOD UREA NITROGEN 14.7 mg/dL (7-18)
[2023-12-26 08:48] LABS: CALCIUM 8.8 mg/dL (8.5-10.1); CREATININE 0.7 mg/dL (0.55-1.3)
[2023-12-26] MEDS: CEFTRIAXONE 1 GM in DEXTROSE 5%-WATER - 50 ML IVPB SCH (10:25)
[2023-12-26] MEDS: LISINOPRIL 5 MG TABLET PO SCH (10:26)
[2023-12-26] MEDS: AZITHROMYCIN IVPB 500 MG/250 ML BAG IVPB SCH (11:11)
[2023-12-26] MEDS: DOCUSATE SODIUM 100 MG CAPSULE (FP) PO SCH (21:10)
[2023-12-27 09:46] VITALS: BP 118/85; PULSE 70; RESP 18; TEMP 97.5
== END 2023-12-27 12:37 | disposition home or self-care (01) ==
LOC: JER 13:24 → JERBED 14:40 → J4S 20:43
PROVIDERS: ADMIT Internal Medicine; ATTEND Internal Medicine
DX: J18.9 Pneumonia, unspecified organism (principal); R79.89 Other specified abnormal findings of blood chemistry; I48.91 Unspecified atrial fibrillation; R55 Syncope and collapse; I10 Essential (primary) hypertension; E78.5 Hyperlipidemia, unspecified; Z87.442 Personal history of urinary calculi
CPT/HCPCS: 0241U-QW; 36415; 70450-TC; 71045-TC-FY; 71275-TC; 72125-TC; 72170-TC-FY; 74174-TC; 76536-TC; 80048; 80053; 82248; 82803; 82962; 83605; 83735; 84100; 84439; 84443; 84484; 85025; 85610; 85730; 86803; 86850; 86900; 86901; 87389; 93005; 93010; 93880-TC; 96365; 96366; 96367; 99285-25; G0378; Q9967